=== PATIENT | male | born 1995 ===

== ENCOUNTER 2016-10-13 03:06 | Inpatient (IN) | payer OTHER ==
[~2016-10-13] VITALS: Ht 177.8 cm; Wt 72.3 kg
--- NOTE | ~2016-10-13 | DS ---
PATIENT'S NAME: KIKE GORMAN [facility] AGE: 21 Y [address] ROOM: [address] [address] LOCATION: GPCU ADMIT DATE: 10/13/2016 Discharge Summary DISCHARGE DATE: 10/14/2016 FAMILY PHYSICIAN: Federico Thorpe MD ATTENDING PHYSICIAN: Oscar Drake PRINCIPAL DIAGNOSES: Diabetic ketoacidosis. SECONDARY DIAGNOSES: 1. Insulin-dependent diabetes. 2. Nausea, vomiting. 3. Likely, gastroenteritis. HOSPITAL COURSE: A 21-year-old gentleman was admitted to the hospital with nausea, vomiting, and weakness. He uses insulin pump for his diabetes. He was found to be in DKA. His pump was switched off and he was started on IV insulin with IV fluids per DKA protocol. Over the course of his hospitalization, DKA resolved, and he was switched back to his subcutaneous insulin pump. No other significant events happened during the hospitalization course. DISCHARGE MEDICATIONS: Insulin pump. DIET: Diabetic diet. FOLLOW UP: Follow up with Dr. Mohr in [place] on Tuesday. MD KATARINA HERNANDEZ/catrachito /[id number] d: 10/15/16 0328 t: 10/25/16 1509, DISCHARGE SUMMARY
--- NOTE | ~2016-10-13 | HP ---
PATIENT'S NAME: KIKE GORMAN [facility] AGE: 21 Y [address] ROOM: [address] [place], [place] [address] LOCATION: GPCU ADMIT DATE: 10/13/2016 History & Physical DISCHARGE DATE: FAMILY PHYSICIAN: PHYSICIAN, UNKNOWN ATTENDING PHYSICIAN: ARIADNA HAMILTON DATE OF SERVICE: CHIEF COMPLAINT: Generalized weakness, nausea and vomiting in the setting of DKA. HISTORY OF PRESENT ILLNESS: This is a 21-year-old male with a history of type 1 diabetes, on home insulin pump. He was diagnosed 18 years ago and has had 2 DKA in the last 10 years. Last one was 10 years ago. The story is that the patient has insulin pump at home and he usually check sugar every day about 6 to 8 times per day and give the insulin loading dose if necessary. The patient says that today he was on his way to get his blood work done because he has an upcoming appointment with his primary email marketing coordinator, Dr. Mohr on this Tuesday and on the way there, the patient had the breakfast where he had a sandwich and after that, he feels nauseous and he vomited about 7 times and he checked the fingerstick glucose, it was around 500. At the same time, he was feeling weak and also some generalized weakness and some diffuse pain in the body. Around noon time, he checked again the fingerstick glucose. This was after he gave some loading dose of the insulin from the insulin pump and he was down to the 400. However, he still felt tired and nauseous. Therefore, he went to outside facility to have it checked out. Over there, the patient was found to be in DKA with venous pH of 7.29, potassium 5.3, anion gap 32.3, positive ketone of 5.6, leukocytosis 20.8, bicarbonate of 10, sodium 131, glucose 495. The patient was started on insulin drip without bolus and given roughly 2 L of normal saline. The patient was sent over here for DKA management. On further interview, the patient denies any other symptoms besides feeling nauseous and generalized weakness and diffuse body pain, but currently he is feeling much better. He denies any chest pain or any cough or any chills or fever or any recent sick contact, or any urinary frequency, urgency or dysuria. The patient does admit that he does not really watch his diet, but he said he does check his sugar of 6 to 8 times per day and only give the insulin if necessary. REVIEW OF SYSTEMS: As mentioned in history of present illness. All other systems were reviewed and that were negative except those mentioned in the history of present illness. PAST MEDICAL HISTORY: PATIENT'S NAME: KIKE GORMAN [facility] AGE: 21 Y [address] ROOM: [place] [address] [facility] ADMIT DATE: 10/13/2016 History & Physical DISCHARGE DATE: FAMILY PHYSICIAN: PHYSICIAN, UNKNOWN ATTENDING PHYSICIAN: ARIADNA HAMILTON 1. Type 1 diabetes, diagnosed 18 years ago and follow up with the email marketing coordinator in [place], Dr. Mohr. He has an upcoming appointment this Tuesday. He uses insulin pump at home. 2. He has had DKA twice in the past. Last time was 10 years ago. 3. No other known past medical history according to the patient. ALLERGIES: NO KNOWN DRUG ALLERGIES ACCORDING TO THE PATIENT. HOME MEDICATIONS: Insulin pump at home for his type 1 diabetes. SOCIAL HISTORY: The patient denies any cigarette or any illegal drug use. He is a social alcohol drinker, but he denies any alcohol abuse. PAST SURGICAL HISTORY: Status post adenoidectomy. FAMILY HISTORY: Both parents are healthy and alive. PHYSICAL EXAMINATION: VITAL SIGNS: At the time of evaluation; temperature 98.3, heart rate 99, respirations 18, blood pressure 125/57, saturation 97% on room air. GENERAL APPEARANCE: Alert and oriented x3, in no acute distress. The patient does look dehydrated and dry on examination with dry oral mucosa. HEENT: Pupils equally round and reactive to light. Extraocular muscles intact. Anicteric sclerae. Nasal turbinates are normal bilaterally. Dry oral mucosa. NECK: No JVD. CARDIOVASCULAR: Tachycardic. Regular rhythm. Normal S1, S2. No murmur. No rubs. No gallops. RESPIRATORY: Clear to auscultation. No rales. No rhonchi. No wheezing. No crackles. ABDOMEN: Soft, nontender, nondistended, normal bowel sounds, no hepatosplenomegaly. Bowel sounds are present. No palpable mass. EXTREMITIES: No edema in upper or lower extremities. NEUROLOGICAL: Grossly nonfocal. SKIN: No ulcer. No rash. No cyanosis. MUSCULOSKELETAL: No joint pain. No muscle pain. Range of motion intact. LABORATORY DATA: Currently, our labs are pending. Blood work from outside facility show urinalysis, positive ketones and positive glucose and 7 white blood cells, but PATIENT'S NAME: KIKE GORMAN [facility] AGE: 21 Y [address] ROOM: [place] [address] LOCATION: GPCU ADMIT DATE: 10/13/2016 History & Physical DISCHARGE DATE: FAMILY PHYSICIAN: PHYSICIAN, UNKNOWN ATTENDING PHYSICIAN: ARIADNA HAMILTON negative nitrite and negative leukocyte. Magnesium 1.9. Hemoglobin A1c 9.4. White blood cell 20.8, hemoglobin 15.8, hematocrit 48, and platelet 219. Venous blood gas; pH 7.29. Sodium 131, potassium 5.3, chloride 94, bicarbonate 10, anion gap 32.3, creatinine 1.3, calcium 9.9, albumin 5.1, total protein 8.1, globulin is 3.0, glucose 495, total bilirubin 1.8, ALT 17, GFR more than 60, AST 26. TSH 0.364. IMAGING STUDIES: EKG performed at the outside facility shows sinus tachycardia, heart rate at 109, VT 126 milliseconds, QRS 90 milliseconds, QTc 419 milliseconds. No acute ischemic changes. ASSESSMENT AND PLAN: 1. Regarding his DKA. The cause could be secondary to dietary indiscretion. and questionable insulin pump compliance given his A1c is high 9.4, despite in checking sugar 6 to 8 times per day according to the patient. I will give him diabetic diet. Do the insulin drip followed by the DKA protocol. Check a basic metabolic panel every 2 hours and replace the electrolytes as necessary. I will also do the underlying trigger for this DKA to rule out sepsis. I will get a blood culture 2 sets and also get a chest x-ray and also a UA. I also consult art educator in the morning. I will stop the insulin pump for now. Further plan depends on clinical course. 2. Regarding his DVT prophylaxis. The patient is young and ambulates. I will just do compression devices. Time spent in care on the day of admission 35 minutes including chart review, interviewing the patient, examining the patient, addressing all the questions and concerns that the patient had, and went over the plan of care in detail with the patient and nurses. Further plan depends on clinical course. MD DANIEL BULL/catrachito /[id number]: [id number] T: [id number] HISTORY & PHYSICAL
[2016-10-13] MEDS ORDERED: HUMALOG100 UNIT/1 (04:13)
--- NOTE | 2016-10-13 05:05 | NUR ---
Significant Event: PATIENT ARRIVES FROM [place] VIA AMBULANCE WITH DKA AND ON AN INSULIN DRIP INFUSING AT 5UNITS/HR. PATIENT IS ALERT AND ORIENTED AND ONLY REPORTS SLIGHT MUSCLE ACHES RATED 2/10 WHICH HE REPORTS "TOLERABLE." PATIENT IS ORIENTED TO ROOM, CALL LIGHT, AND SURROUNDINGS. PATIENT DOES NOT SMOKE BUT DOES USE CHEWING TOBACCO. NS INFUSING AT 150ML/HR WITH INSULIN AT 5 UNITS/HR. LAST BLOOD GLUCOSE AT 0420 WAS 211. NO TITRATION NEEDED AT THIS TIME PER DR. HAMILTON. Significant Event: DR. HAMILTON NEEDS TO YET ASSESS PATIENT AND HAYES ORDERS. HE HAS BEEN NOTIFIED.
--- NOTE | 2016-10-13 05:24 | NUR ---
PATIENT ARRIVES TO THE UNIT FROM [place] AT 0400 VIA AMBULANCE.PATIENT IS ABLE TO AMBULATE TO BATHROOM TO VOID. UA IS OBTAINED IN CASE DR. HUTCHINS. URINE IS CLEAR YELLOW COLOR. IT IS REPORTED BY THE PATIENT THAT HE HAD BEEN TRYING ALL DAY (10/12) TO GET HIS BLOOD SUGAR UNDER CONTROL BUT REPORTS HE HAS STRUGGLED. ONLY S/S HE REPORTS IS N/V WHICH HAS RESOLVED AT THIS POINT. DENIES DIZZINESS, NUMBNESS OR TINGLING. ALERT AND ORIENTED. UPON ARRIVAL PATIENT IS NS INFUSING WITH AN INSULIN DRIP INFUSING AT 5U/HR. BLOOD GLUCOSE AT 0320 WAS 297 PER EMS. [address] HAMILTON NOTIFIED AND INSTRUCTED TO NOT MAKE ANY CHANGES AT THIS TIME. BLOOD GLUCOSE AT 0520 IS 161. DRIP IS STOPPED PER . HAS YET TO ASSESS PATIENT.
[2016-10-13 05:51] LABS: BILIRUBIN URINE NEGATIVE (NEGATIVE); BLOOD URINE NEGATIVE /UL (NEGATIVE); COLOR URINE YELLOW (YELLOW); GLUCOSE URINE 1000 mg/dL (NEGATIVE); KETONE URINE 150 mg/dL (NEGATIVE); LEUKOCYTES URINE NEGATIVE /UL (NEGATIVE); NITRITE URINE NEGATIVE (NEGATIVE); PROTEIN URINE NEGATIVE (NEGATIVE); TURBIDITY URINE CLEAR (CLEAR); UROBILINOGEN URINE NORMAL (NORMAL)
[2016-10-13 06:11] LABS: BICARBONATE 17.4 mmol/L (18.0-23.0); LACTATE 1.6 mEq/L (0.50-1.60); PCO2 33 mmHg (35-45); PO2 73 mmHg (80-90)
[2016-10-13 06:15] LABS: BASOPHIL # 0.1 K/uL (0.0-0.2); BASOPHIL % 0.3 %; EOSINOPHIL % 0.1 %; HEMATOCRIT 41.1 % (37.0-53.0); HEMOGLOBIN 14.5 g/dL (12.0-17.0); IMMATURE GRANULOCYTE # 0.1 K/uL (0.0-0.3); IMMATURE GRANULOCYTE % 0.5 %; LYMPHOCYTE # 1.3 K/uL (0.8-4.0); LYMPHOCYTE % 6.8 %; MCH 31.3 pg (27.0-34.0); MCHC 35.3 gm/dL (32.0-36.5); MCV 88.8 fl (83.0-98.0); MONOCYTE # 1.3 K/uL (0.0-1.0); MONOCYTE % 6.7 %; MPV 10.6 fl (9.4-12.4); NEUTROPHIL # (ANC) 16.3 K/uL (1.4-9.0); NEUTROPHIL % 85.6 %; NRBC % 0 /100WBC (0-0.00); PLATELET COUNT 220 K/uL (150-450); RBC 4.63 M/uL (4.00-6.00); RDW-CV 12.2 % (11.9-14.6)
[2016-10-13 06:28] LABS: INR - (THERAPEUTIC) 1.08 (0.92-1.07); PROTIME 11.4 SECONDS (9.8-11.4); PTT 22 SECONDS (25-32)
[2016-10-13 06:34] LABS: ALBUMIN 4.2 gm/dL (3.5-5.0); ALK PHOS 76 IU/L (33-138); ALT 15 IU/L (12-78); AST 12 IU/L (10-40); TOTAL BILIRUBIN 0.9 mg/dL (0.0-1.5); TOTAL PROTEIN 7.3 g/dL (6.0-8.4)
[2016-10-13 06:54] LABS: ANION GAP 20.7 (10.0-19.0); BLOOD UREA NITROGEN 21 mg/dL (6-24); CALCIUM 9.1 mg/dL (8.5-10.5); CHLORIDE 109 mMol/L (96-110); CO2 15 mMol/L (22-32); CREATININE 1.2 mg/dL (0.6-1.3); ESTIMATED GFR (MDRD EQUATION) > 60; POTASSIUM 4.7 mMol/L (3.7-5.1); SODIUM 140 mMol/L (135-145)
[2016-10-13 08:07] LABS: BLOOD UREA NITROGEN 21 mg/dL (6-24); CHLORIDE 107 mMol/L (96-110); CREATININE 1.1 mg/dL (0.6-1.3); ESTIMATED GFR (MDRD EQUATION) > 60; POTASSIUM 4.9 mMol/L (3.7-5.1); SODIUM 139 mMol/L (135-145)
[2016-10-13 08:09] LABS: ANION GAP 21.9 (10.0-19.0); CO2 15 mMol/L (22-32)
--- NOTE | 2016-10-13 09:30 | NUR ---
Diabetes Consult: Patient with type I diabetes for the last 18 years. Patient is poorly controlled with A1C at 9.4% and utilizes a medtronic insulin pump. The patient reports having an appointment scheduled with Dr. Mohr, scanner supervisor in [place] and was to present for fasting labs yesterday. After his lab test, he reports eating a sandwich at the gas station and "immediately" began vomiting. Patient reports he suspected he had food poisoning. The patient did check his blood sugar at the time and the value registered over 500 mg/dL. The patient appropriately changed out his insulin pump site and supplies and administered another bolus of insulin through his pump. Upon recheck, he reports his blood sugar lowered to the "400's". At that point the patient presented to the [facility], where he was found to be in DKA and transferred to [facility]. The patient denies having a recent illness or feeling ill during the week. Denies recent exposure to ill persons. Currently, the patient is on the insulin gtt. pH at 7.33, with anion gap open at 21.3. The patient was provided with additional pump supplies and is capable of restarting his insulin pump once dka has resolved. The patient's TDD is 30 units. Basal rates at 0000 at 1.15 units/hr; 0600-1.30 units/hr; Insulin to carb ratio at 1 unit for every 10 grams of carbs and ISF at 40 mg/dl. Diabetes education completed. Patient is alert and oriented, complaining of a "slight" headache. Insulin safety pump sheet reviewed. Recommended that the patient consider giving a manual subq injection in the future if he is experiencing hyperglycemia, positive ketones and troubleshooting pump fails to lowere blood sugars.
[2016-10-13 14:31] LABS: BLOOD UREA NITROGEN 17 mg/dL (6-24); CALCIUM 8.9 mg/dL (8.5-10.5); CHLORIDE 109 mMol/L (96-110); CO2 23 mMol/L (22-32); CREATININE 1.2 mg/dL (0.6-1.3); ESTIMATED GFR (MDRD EQUATION) > 60; SODIUM 142 mMol/L (135-145)
--- NOTE | 2016-10-13 16:24 | NUR ---
Significant Event: ivf changed from ns to [id number] to 1/2ns. Insulin gtt restarted, 5-24u/hr, still on hourly accuchecks. Pt self up to bathroom. Svetlana diabetic ed in talks to pt/mom, all ready to resume his pump just need novolog bottle from pharmacy when dr orders. Last BMP improved. Pt ate good this afternoon. BG got to 58, pt had snack and up to 112. Follow up:
--- NOTE | 2016-10-14 05:04 | NUR ---
Significant Event: A/O x3. Afebrile. Denies pain. VSS on RA. SBP 110-120s. On insulin gtt. 100-200s blood sugars. One low 42 blood sugar, gave 25ml dextrose bolus, orange juice, sherbet- blood sugar increased to 175. Pt has been asymptomatic entire shift. Up independent, walked in singh. Cooperative with cares. Follow up: Possible discharge today.
[2016-10-14 07:20] LABS: ALBUMIN 3.2 gm/dL (3.5-5.0); ANION GAP 13.1 (10.0-19.0); BLOOD UREA NITROGEN 9 mg/dL (6-24); CALCIUM 8.4 mg/dL (8.5-10.5); CHLORIDE 109 mMol/L (96-110); CO2 24 mMol/L (22-32); CREATININE 0.8 mg/dL (0.6-1.3); ESTIMATED GFR (MDRD EQUATION) > 60; MAGNESIUM 1.8 mg/dL (1.8-2.6); PHOSPHORUS 2.2 mg/dL (2.5-4.9); POTASSIUM 4.1 mMol/L (3.7-5.1); SODIUM 142 mMol/L (135-145)
--- NOTE | 2016-10-14 11:00 | NUR ---
Diabetes consult: Patient is alert and oriented and planning to discharge home today. Insulin gtt was dc'd and medtronic insulin pump restarted with Novolog infusing to site on right thigh. Pump safety guidelines were given to the patient. Denies any questions or concerns.
--- NOTE | 2016-10-14 13:32 | NUR ---
Significant Event: PT A&O x3. VSS, on room air. Insulin gtt dc'd and PT started own insulin pump. IV dc'd. Up ad emperatriz in room and singh. Dismissal instructions given to patient and mother, voiced undertanding. PT wheeled to front lobby by RN. Follow up:
== END 2016-10-14 12:56 | disposition disaster alternative care site (69) | DRG 639 ==
LOC: GPCU 03:06
PROVIDERS: Internal Medicine; ADMIT Internal Medicine
DX: E10.10 Type 1 diabetes mellitus with ketoacidosis without coma (principal); K52.9 Noninfective gastroenteritis and colitis, unspecified; Z96.41 Presence of insulin pump (external) (internal); R23.0 Cyanosis
CPT/HCPCS: J3480; J7030; J7040